=== PATIENT | male | born 1950 | race Caucasian/White ===

== ENCOUNTER 2018-12-07 09:23 | Emergency (ER) | payer MEDICARE, OTHER ==
[~2018-12-07] VITALS: Ht 180.3 cm; Wt 83.5 kg
[2018-12-07] MEDS ORDERED: LOSARTAN POTASS25 MG (09:35)
[2018-12-07] MEDS ORDERED: PANTOPRAZOLE SO40 MG PO (09:35)
[2018-12-07] MEDS ORDERED: ASPIRIN81 MG (09:35)
[2018-12-07] MEDS ORDERED: LIDOCAINE 2%/ EPINEPHRINE 20ML MDV ONE (10:00)
[2018-12-07] MEDS ORDERED: BACITRACIN ZINC 0.9GM TP ONE ×2 (10:00)
[2018-12-07] MEDS ORDERED: LIDOCAINE 1% W/EPINEPHRINE 20 ML VIAL INJ ONE (10:00)
--- NOTE | 2018-12-07 10:40 | NUR ---
EKG DONE PER PARTS INSPECTOR. 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 NO FEVERS. NO N/V/D. STATES HIS HR GOES UP EVERYTIME HE TAKES HIS BREATHING TX'S. PARTS INSPECTOR NOTIFIED.
--- NOTE | 2018-12-07 10:45 | NUR ---
PT REQUEST TO BE W/C'D TO POV. DROVE HIMSELF. STATES NOT ABLE TO HOLD HIS PEN WELL. OFFERED TO HAVE ANYONE CALLED TO HAVE PT PICKED UP AND DRIVEN HOME, PT STATES HE CAN DRIVE WELL AND DECLINED. PT W/C'D TO POV PER REQUEST...
== END 2018-12-07 10:20 | disposition home or self-care (01) ==
LOC: ER 09:23
DX: L02.31 Cutaneous abscess of buttock (principal); R00.0 Tachycardia, unspecified; I10 Essential (primary) hypertension; K21.9 Gastro-esophageal reflux disease without esophagitis; Z85.118 Personal history of other malignant neoplasm of bronchus and lung; Z79.82 Long term (current) use of aspirin
CPT/HCPCS: 10060; 93005; 99284; J2001; 10061